=== PATIENT | male | born 1975 | race Caucasian/White ===

== ENCOUNTER 2022-02-26 08:04 | Outpatient (CLI) | payer OTHER, SELFPAY ==
[2022-02-26 13:44] LABS: Chloride* 106 mmol/L (96-114); Sodium* 140 mmol/L (135-149)
[2022-02-26 13:45] LABS: Potassium* 4.5 mmol/L (3.6-5.1)
[2022-02-26 13:47] LABS: Carbon Dioxide* 26 mmol/L (20-32); Cholesterol* 145 mg/dL (90-199); Creatinine* 0.9 mg/dL (0.5-1.5); Estimated Glomerular Filt Rate 108 ml/min
[2022-02-26 13:48] LABS: Blood Urea Nitrogen* 18 mg/dL (5-24); Calcium* 9.3 mg/dL (8.4-10.6); Glucose* 115 mg/dL (60-115); HDL Cholesterol* 61 mg/dL (>=40); LDL Cholesterol Calculated 75 mg/dL (<100); Triglycerides* 47 mg/dL (40-149)
[2022-02-27 18:10] LABS: Testosterone, Adult Male 390 ng/dL (300-890)
== END 2022-02-26 08:05 | disposition home or self-care (01) ==
LOC: LONREF 08:05
PROVIDERS: PCP Family Medicine; Visit Provider Family Medicine
DX: E29.1 Testicular hypofunction (principal); I10 Essential (primary) hypertension; E78.5 Hyperlipidemia, unspecified
CPT/HCPCS: 80048; 80061; 84403

== ENCOUNTER 2022-10-13 15:20 | Outpatient (CLI) | payer OTHER, SELFPAY ==
--- NOTE | 2022-10-13 15:30 | MR_ITS ---
[address] [address] Phone:?[phone] Fax:?[phone] Referring Physician Information: Melissa Villar [address] [facility] [address] Phone:?[phone] Fax:?[phone] Patient:Nico Hawkins D.O.B:?1975 Sex:?Male Phone:?[phone] [facility] MRN:?[id number] Exam Date:?10/13/2022 ? EXAM: MRI of the RIGHT SHOULDER, without contrast CLINICAL INFORMATION: Male, 47 years old, with right shoulder pain. INDICATION: Evaluate for rotator cuff tear. PRIOR SURGERY: None reported. PLAIN FILMS: Shoulder radiographs dated 09/30/2022. COMPARISONS: No prior MRIs available. TECHNICAL INFORMATION: Using a 1.5T MR scanner and a localizing surface coil: coronal obliques: PD, T2FS sagittal obliques: T2, PDFS axials: PD, PDFS SEDATION: None CONTRAST: None FINDINGS: Bones: Proximal humerus: No fracture or marrow edema/pathology. No humeral Hill-Sachs or reverse Hill-Sachs lesion/impaction or contusion. Glenoid: No fracture or marrow edema/pathology. No osseous Bankart lesion. Rotator cuff and muscles/tendons: Supraspinatus: Full width, full-thickness tear of supraspinatus, tendon retraction to the medial aspect of the humeral head and grade 2 muscle atrophy. Infraspinatus: Full thickness, nearly full-width tear of infraspinatus, with tendon retraction to the medial aspect of the humeral head. A few poor quality fibers may remain intact posteriorly. No muscle atrophy. Teres minor: No tendinopathy, tear or atrophy. Subscapularis: Mild tendinopathy of the superior distal subscapularis, without tendon tear or muscle atrophy. Deltoid: No strain or atrophy. Coracoacromial arch: Acromion morphology: The acromion has type II morphology. No discrete subacromial osseous spur or os acromiale. Acromiohumeral space: The acromiohumeral space measures 5.4 mm at its narrowest point (osseous distance). Coracohumeral space: The coracohumeral space is within normal limits. Acromioclavicular joint: Joint: Moderate AC joint arthropathy, with approximately 3 mm of inferior osteophytosis. Ligaments: Coracoclavicular ligaments are intact. Bursae: Subacromial-subdeltoid: Moderate subacromial-subdeltoid bursal fluid, which reflects accumulation from the full-thickness rotator cuff tear. Subcoracoid: No convincing subcoracoid bursal thickening/bursitis. Biceps tendon: The long head of the biceps tendon is present within the bicipital groove. The intra-articular and extra-articular segments are intact without tendinosis, tenosynovitis, or displacement. Glenohumeral joint: Effusion/cyst: Large glenohumeral joint effusion. Articular cartilage: Humeral head: Mild generalized thinning of the articular cartilage throughout the medial aspect of the humeral head with minimal inferomedial marginal osteophytosis. Glenoid: Mild generalized thinning of the glenoid articular cartilage, with mild marginal osteophytosis. Loose bodies: No discrete intra-articular body within the joint. Labrum:?Circumferential degeneration and poorly defined fraying/tearing of the labrum, which is of doubtful clinical significance. Inferior glenohumeral ligament/axillary pouch:?Intact. The axillary pouch is normal in thickness and signal. No evidence of adhesive capsulitis or capsular injury. IMPRESSION: 1. Full-width, full-thickness tear of supraspinatus, with tendon retraction to the medial aspect of the humeral head and grade 2 muscle atrophy. 2. Full-thickness, essentially full-width tear of infraspinatus, with tendon retraction to the medial aspect of the humeral head. A few, poor quality fibers may remain intact posteriorly. 3. Mild narrowing of the glenohumeral space with moderate subacromial-subdeltoid bursal fluid. Additionally, there is moderate AC joint arthropathy with 3 mm of inferior osteophytosis. 4. Mild osteoarthritis of the glenohumeral joint with a large joint effusion. 5. Circumferential degeneration and poorly defined fraying/tearing of the labrum, which is of doubtful clinical significance. 6. No tendinopathy, displacement, or tear of the biceps long head tendon. BC Electronically signed on 10/14/2022 7:35:00 AM by Milan Urias M.D.
== END 2022-10-13 15:21 | disposition home or self-care (01) ==
PROVIDERS: PCP Family Medicine; Visit Provider Physician Assistant Surgical
DX: M25.511 Pain in right shoulder (principal); M75.101 Unspecified rotator cuff tear or rupture of right shoulder, not specified as traumatic; M75.51 Bursitis of right shoulder; M25.411 Effusion, right shoulder; M25.311 Other instability, right shoulder
CPT/HCPCS: 73221

== ENCOUNTER 2022-11-12 16:30 | Outpatient (RCR) | payer OTHER, SELFPAY | END 2023-01-06 10:00 | disposition home or self-care (01) | PROVIDERS: PCP Family Medicine; Visit Provider Physician Assistant Surgical | DX: M25.511 Pain in right shoulder (principal); M25.311 Other instability, right shoulder; Z51.89 Encounter for other specified aftercare | CPT/HCPCS: 97110; 97112; 97140; 97161 ==

== ENCOUNTER 2022-12-03 15:41 | Outpatient (CLI) | payer OTHER, SELFPAY | END 2022-12-03 15:42 | disposition home or self-care (01) | LOC: LONREF 15:42 | PROVIDERS: PCP Family Medicine; Visit Provider Family Medicine | DX: I10 Essential (primary) hypertension (principal); E78.5 Hyperlipidemia, unspecified | CPT/HCPCS: 80048 ==

== ENCOUNTER 2022-12-10 07:25 | Day surgery (SDC) | payer OTHER, SELFPAY ==
[2022-12-10] VITALS (14 sets, daily range): BP systolic 127–151; BP diastolic 76–95; PULSE 60–77; RESP 12–22; TEMP 36.3–36.8; O2SAT 93–98; BMI 33.4
[2022-12-10] MEDS: SODIUM CHLORIDE 0.9 % (FLUSH) 10 ML SYRINGE IVF (08:00)
[2022-12-10] MEDS: LACTATED RINGERS 1000 ML 1,000 ML 100 ML IV ×2 (08:00→10:03)
--- NOTE | 2022-12-10 08:39 | SUR.PREOP ---
TIME?OUT:?0840 PT/RN/MDA?VERIFICATION?OF?SURGICAL?SITE,?PROCEDURE,?AND?CONSENT OBTAINED?PRIOR?TO?INVASIVE?PROCEDURE.
[2022-12-10] MEDS: MIDAZOLAM HCL 1 MG/ML inj IVP (08:40)
[2022-12-10] MEDS: fentaNYL 100 MCG/2 ML inj IVP (08:40)
--- NOTE | 2022-12-10 09:57 | P.NB_ITS ---
Nerve Block Nerve Block Time Seen by Provider: 08:43 Date Seen: 12/10/22 Type of block requested by surgeon for post-operative analgesia: supraclavicular Side: right Time out performed: Yes Verification of patient name: Yes Verification of date of : Yes Site marking: site marked Name of person performing procedure: Thierno Continuous monitoring Was continuous monitoring of O2 sat, B/P, diagnostic cardiac sonographer, recorded every 15 minutes?: Yes Procedure Checklist: sterile prep, needles and gloves Ultrasound guided. Images saved: Yes Medications given in 5ml increments after negative aspiration: Ropivicaine %: 0.5 mL: 20 Needle gauge: 22 Decadron (mg): 10 Precedex (mcg): 25 Patient tolerated procedure well: Yes Block Charges Block Charge (with Pro Fee): Brachial Plexus Use of Ultrasound Machine for Block: Yes- US Guidance/pain block
--- NOTE | 2022-12-10 09:58 | W.ANESCHARGE ---
Anesthesia Charges Start Date/Time Anesthesia Start Date: 12/10/22 Anesthesia Start Time: 09:38 Stop Date/Time Anesthesia Stop Date: 12/10/22 Anesthesia Stop Time: 12:38
[2022-12-10] MEDS: CEFAZOLIN 2 GM in 0.9 % SODIUM CHLORIDE Mini-bag 100 ML IVPB (10:01)
[2022-12-10] MEDS: EPINEPHrine 1 MG in SODIUM CHLORIDE IRRIG SOLUTION 3,000 ML 3001 MG IRRIGATION ×6 (10:30→11:38)
--- NOTE | 2022-12-10 12:00 | P.ORPRC_ITS ---
Procedure Note Date of procedure: 12/10/22 Procedure: PREOPERATIVE DIAGNOSES: 1. Right shoulder rotator cuff tear. 2. Right shoulder AC degenerative joint disease, primary, moderate-severe 3. Right shoulder subacromial impingement syndrome. POSTOPERATIVE DIAGNOSES: 1. Right shoulder rotator cuff tear-full thickness supraspinatus and infraspinatus with retraction to the glenoid. Also upper border subscapularis tearing 2. Right shoulder AC degenerative joint disease, primary, moderate-severe 3. Right shoulder subacromial impingement syndrome. NAME OF OPERATION: 1. Right shoulder arthroscopic rotator cuff repair - massive 3 tendon tear with retraction of the supraspinatus and infraspinatus to the glenoid with adhesions -of note, 33% added difficulty for this case which included 33% more time and need for tissue mobilization due to its retracted, adhesed state of the rotator cuff (supraspinatus and infraspinatus) tissue. 2. Right shoulder arthroscopic distal clavicle excision 3. Right shoulder arthroscopic bursectomy, subacromial decompression/partial acromioplasty. SURGEON: Paul Ritter MD CERTIFIED MEDICATION TECHNICIAN: Omayra Tubbs. Of note, a skilled preschool teacher's assistant was critical for this case to aide in patient positioning, suture manipulation, arm positioning, instrument positioning, and closure. ANESTHESIA: General plus preoperative supraclavicular block. EBL: 25 mL IMPLANTS: Arthrex 2.6 mm knotless FiberTak RC (x2); 4.75 mm BioComposite SwiveLock suture anchor (x1); 5.5 mm BioComposite SwiveLock suture anchor (x2) COMPLICATIONS: None evident INDICATIONS: The patient is a pleasant, 47-year-old male who has experienced right shoulder pain that has been increasing in recent time. Physical exam and imaging were consistent with a rotator cuff tear. Given their findings, as well as the weakness and pain, and inadequate response to nonoperative management, recommendation was made for surgery. FINDINGS: Exam under anesthesia revealed stable shoulder with excellent range of motion. The diagnostic arthroscopy revealed grade 2 chondromalacia humeral head. The Subscapularis tendon was torn from its upper border with mild retraction. The long head of the biceps tendon was intact. The superior rotator cuff tendon was found to be torn full-thickness throughout the entire breadth of the supraspinatus and a majority of the infraspinatus with retraction to the glenoid for both of these tissues. The labrum was relatively healthy circumferentially. No loose bodies were identified within the pouch or subscapularis recess. PROCEDURE: Following a thorough discussion of risks, benefits, and alternatives, consent was obtained and the right shoulder was marked. The patient was brought to the operating room and placed supine on the operating table. Induction of anesthesia was completed after preoperative supraclavicular block was administered in preop holding. Appropriate time out was performed identifying proper patient, site, and procedure. 2 g IV Ancef was administered within 1 hour of incision preoperatively. The right upper extremity was prepped and draped in the appropriate sterile fashion using ChloraPrep prep. This was after the patient was positioned in the beach chair with their head in neutral alignment and all bony prominences well padded. The shoulder was insufflated with 20mL of normal saline via an 18g spinal needle from a posterior approach. An 11 blade skin incision allowed a blunt trochar to be inserted and diagnostic arthroscopy to be performed with the findings as noted above. An anterior portal was established with an outside in technique. This allowed the probe to be inserted and confirm the diagnostic arthroscopic findings. The shaver was then inserted and allowed debridement of rotator interval to help better access the subscapularis. Following this, the upper border subscapularis was repaired after debriding the lesser tuberosity with the shaver and Letart cautery. Subscapularis was captured in horizontal mattress fashion with a fiber tape suture. The tails were brought to a single anchor in the lesser tuberosity with excellent reapproximation of the subscap tendon and good excursion/tension. Thereafter, the subacromial space was entered. Here, a complete bursectomy and partial acromioplasty/subacromial decompression was performed with a combination of radiofrequency ablator, the shaver, and a 5.5 mm bur. Additionally, distal clavicle excision was performed with the bur. 8 mm of distal clavicle was resected based on the with of our bur. Further inspection of the supraspinatus and infraspinatus rotator cuff was performed. This identified the tear as noted above. The margins of the tear were debrided, and the greater tuberosity was debrided with a combination of the apollo cautery, shaver, and bur on reverse setting. Of note, did require substantial increased tissue mobilization/lysis of adhesions to provide the rotator cuff tissue excursion that was needed to reapproximate the tissue to the greater tuberosity. In fact, approximately 45-50 minutes was spent in releasing of adhesions and improving tissue excursion for eventual repair. This indeed was 33% longer than is typical for rotator cuff repairs in my hands. [After gentle decortication, a speed bridge configuration with knotless 2.6 mm FiberTak RC anchors. The medial anchors were placed, sutures passed through the cuff tissue with a FiberLink, and the knotless mechanism swapped and passed and tightened nearly all the way but final tensioning was reserved for the very end. The tissue was held laterally during tightening of these medial roxanna sutures. We then cross the fiber tapes and placed him into a lateral anchor with excellent footprint compression. After securing these lateral anchors, the medial roxanna sutures were tensioned to their final state with excellent security to the anchors and rotator cuff reapproximation to the greater tuberosity. Prior to anchor local company hazmat driver removal, the eyelet sutures were tugged on for each anchor and found that the anchor had excellent stability within the bone. The shoulder was placed through range of motion and found to be stable. The rotator cuff was re-probed and found to be stable. Instruments were removed. Excess fluid was drained, closure performed with 4-0 Monocryl and Steri-Strips. Dressings were applied. Sling was applied. The patient was awoken from anesthesia and transferred to the PACU in stable condition. A skilled preschool teacher's assistant was critical for this case to aid in patient positioning, limb positioning, skill to manipulate arthroscopic instruments and camera, suture management, patient safety, and closure. PLAN: 1. Elbow, forearm, wrist and digit range of motion as tolerated. 2. Encouraged ice. 3. Percocet for pain as needed. 4. Sling at all times except for ROM and showering. 5. Follow up with PA visit in 1-2 weeks for wound check. Initiate physical therapy following that visit for passive range of motion. Initiate active assisted range of motion at 3 weeks. May do pendulums now.
--- NOTE | 2022-12-10 12:34 | W.ANESCHARGE ---
Anesthesia Charges Start Date/Time Anesthesia Start Date: 12/10/22 Anesthesia Start Time: 09:38 Stop Date/Time Anesthesia Stop Date: 12/10/22 Anesthesia Stop Time: 12:38
[2022-12-10] MEDS: fentaNYL 100 MCG/2 ML inj 50 MCG IVP (12:43)
[2022-12-10] MEDS: OxyCODONE/APAP 5-325 TABLET PO (13:20)
== END 2022-12-10 14:32 | disposition home or self-care (01) ==
PROVIDERS: PCP Family Medicine; Visit Provider Orthopaedic Surgery Sports Medicine
PROC: (CPT 29805; principal; 2022-12-10 09:15)
DX: M75.101 Unspecified rotator cuff tear or rupture of right shoulder, not specified as traumatic (principal); M19.011 Primary osteoarthritis, right shoulder; M75.41 Impingement syndrome of right shoulder; G89.18 Other acute postprocedural pain
CPT/HCPCS: 29827; 29826; 29824; 01630; 64415; 76942; A9270; C1713; J0171; J0330; J0690; J1100; J1170; J2250; J2405; J2704; J2795; J3010; J7120

== ENCOUNTER 2023-03-02 14:45 | Outpatient (RCR) | payer OTHER, SELFPAY | END 2023-05-20 14:44 | disposition home or self-care (01) | PROVIDERS: PCP Family Medicine; Visit Provider Physician Assistant Surgical | DX: Z51.89 Encounter for other specified aftercare (principal); Z98.890 Other specified postprocedural states; M25.511 Pain in right shoulder; Z74.09 Other reduced mobility; R53.1 Weakness | CPT/HCPCS: 97110; 97112; 97140; 97162 ==

== ENCOUNTER 2023-06-24 08:35 | Outpatient (CLI) | payer OTHER, SELFPAY | END 2023-06-24 08:36 | disposition home or self-care (01) | LOC: NFLDREF 06-26 08:03 | PROVIDERS: PCP Family Medicine; Referring Provider Family Medicine; Visit Provider Family Medicine | DX: E78.5 Hyperlipidemia, unspecified (principal) | CPT/HCPCS: 80061 ==

== ENCOUNTER 2023-09-22 16:09 | Outpatient (CLI) | payer OTHER, SELFPAY ==
--- NOTE | 2023-09-22 16:00 | US_ITS ---
Patient: CHRIS CHOI Facility:?[facility] Patient ID:?[id number] Site Patient ID:?[id number]. Site :?1975 Study:?US-Testicle SCROTUM-09/22/2023 4:57:23 PM Ordering Physician:?LILIA PAINTER CNP Final Report: Indication: Right testicular pain. Technique: Ultrasound of the scrotum and contents. Sonographic robert-scale images were obtained with spectral and color Doppler waveform and spectral waveform analysis of the testicles. Comparison: None. Findings: Bother testicles are normal in size and echotexture. No masses. Punctate calcifications present in the right testicle. Arterial and venous color Doppler blood flow and spectral waveforms are present in both testicles. Epididymis: Right epididymis is hyperemic relative to the left. Other: No significant hydrocele. No sign of varicocele. Scrotal wall appears thickened. Impression: Probable right side epididymitis. Suspected scrotal wall thickening suggesting inflammation. No sign of torsion. No other significant abnormality. Dictated by Audie Cagle MD @ 09/22/2023 5:24:11 PM Signed by:?Audie Cagle MD @09/22/2023 5:24:11 PM (Electronic Signature)
== END 2023-09-22 16:10 | disposition home or self-care (01) ==
LOC: US 16:09
PROVIDERS: PCP Family Medicine; Visit Provider Nurse Practitioner Family
DX: N50.811 Right testicular pain (principal)
CPT/HCPCS: 76870; 93976

== ENCOUNTER 2024-02-24 07:37 | Emergency (ER) | payer OTHER, SELFPAY ==
[2024-02-24 07:42] VITALS: BP 139/93; PULSE 65; RESP 16; TEMP 36.3; O2SAT 97; BMI 32.0
--- NOTE | 2024-02-24 08:04 | ED_ITS ---
HPI - General Adult General Chief complaint: Back Injury/Pain Stated complaint: lower back pain Time Seen by Provider: 02/24/24 07:44 History of Present Illness HPI narrative: 48 year white male with a know history of low back pain presents with right- sided low back pain radiates down his right leg. He has no bowel or bladder symptoms, loss of control of bowel or bladder. No perineal numbness. He has had no real history of back pain before, does not recall trauma or injury. 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 He has had no fever, chills, weight loss. Patient has struggled with some left shoulder pain and was pending an MRI for shoulder discomfort. Patient reports no loss of control of his right leg or weakness. He did some stretching at home and some icing and it seemed worse today. Related Data Home Medications ?Medication ?Instructions ?Recorded ?Confirmed Testosterone Cypionate Inj. 350 mg IM Q2W 01/31/22 02/09/24 Previous Rx's ?Medication ?Instructions ?Recorded atorvastatin 20 mg tablet 20 mg PO QDAY #90 tabs 10/20/23 citalopram 40 mg tablet 40 mg PO QDAY #30 tabs 01/19/24 lisinopril 40 mg tablet 40 mg PO QDAY #30 tabs 01/19/24 oxycodone 5 mg tablet 5 mg PO QHS PRN pain #30 tabs 02/09/24 celecoxib 200 mg capsule (Celebrex) 200 mg PO DAILY #14 caps 02/24/24 hydrocodone 7.5 mg-acetaminophen 1 tab PO Q8H PRN pain #14 tabs 02/24/24 325 mg tablet prednisone 20 mg tablet 20 mg PO BID #10 tabs 02/24/24 Allergies Allergy/AdvReac Type Severity Reaction Status Date / Time No Known Drug Allergies Allergy Verified 02/24/24 07:48 Review of Systems Status of ROS: Reports: 6 or more systems reviewed and unremarkable except as noted in History and below [facility] Medical History Mixed hyperlipidemia ?E78.2 - Mixed hyperlipidemia (ICD-10) Primary hypertension ?I10 - Essential (primary) hypertension (ICD-10) Epididymitis ?N45.1 - Epididymitis (ICD-10) Sleep apnea ?G47.30 - Sleep apnea, unspecified (ICD-10) Insomnia (02/01/13) ?G47.00 - Insomnia, unspecified (ICD-10) Heart murmur ?R01.1 - Cardiac murmur, unspecified (ICD-10) Anxiety (12/25/08) ?F41.9 - Anxiety disorder, unspecified (ICD-10) Tobacco use disorder (12/25/08) ?F17.200 - Nicotine dependence, unspecified, uncomplicated (ICD-10) Surgical History History of arthroscopy of right shoulder (12/10/22) ?Z98.890 - Other specified postprocedural states (ICD-10) Status post tendon repair ?Z98.890 - Other specified postprocedural states (ICD-10) Status post surgical manipulation of ankle joint ?Z98.890 - Other specified postprocedural states (ICD-10) Status post vasectomy ?Z98.52 - Vasectomy status (ICD-10) Family History Other Diabetes Social History What is your current living situation?: I presently have a place to live Problems where you live: no known problems In the past 12 months, utilities in danger of being shut off: no In past 12 months, lack of transportation kept you from medical appts, meetings, work, or getting things needed for daily living: no In the past 12 mos, have been you worried that your food would run out before you had money to buy more?: never true In the past 12 mos, the food you bought just didn't last and you didn't have money to buy more?: never true Smoking Status: Former smoker What tobacco products do you use: cigarettes Smoking quit date/years: <= 15 years ago Do you use any of these nicotine containing products: None How often do you have a drink containing alcohol: 2-3 times a week Alcohol type: hard liquor How many standard drinks containing alcohol do you have on a typical day: 5 or 6 How often do you have six or more drinks on one occasion: Never AUDIT-C Alcohol total score: 5 Non-prescribed substance use: denies use Caffeine: Yes (4 monsters/day) How often does anyone, including family, friends and others, physically hurt you : never How often does anyone, including family, friends and others, insult or talk down to you: never How often does anyone, including family, friends and others, threaten you with harm: never How often does anyone, including family, friends and others, scream or curse at you: never Little interest or pleasure in doing things: more than half the days Feeling down, depressed, or hopeless: more than half the days Exam Narrative: Exam Narrative: Objective: Patient is afebrile He is in mild distress to moderate distress and discomfort, he is cooperative alert He walks with a very straight back and has difficulty flexing his back. Ports pain in his right posterior superior iliac spine area that radiates through his buttock and down to his lateral leg on the right. He has normal sensation and strength in lower extremities bilaterally, he has a positive straight leg raise on the right at about 50? Normal sensation peripherally Const: Vital Signs, click to edit/add: Vital Signs - 24 hr 02/24/24 07:42 Temperature 97.3 F L Pulse Rate [Right Pulse Oximeter] 65 Respiratory Rate 16 Blood Pressure [Ri ght Upper Arm] 139/93 H Pulse Oximetry 97 Oxygen Delivery Me thod Room Air Course Vital Signs Vital signs: Initial Vital Signs Temperature 97.3 F L 02/24/24 07:42 Temperature Source Temporal Artery Scan 02/24/24 07:42 Pulse Rate 65 02/24/24 07:42 Pulse Rhythm Regular 02/24/24 07:42 Respiratory Rate 16 02/24/24 07:42 Blood Pressure 139/93 H 02/24/24 07:42 Blood Pressure Mean 108 H 02/24/24 07:42 Blood Pressure Position Sitting 02/24/24 07:42 Pulse Oximetry 97 02/24/24 07:42 Oxygen Delivery Method Room Air 02/24/24 07:42 Vital Signs Temperature 97.3 F L 02/24/24 07:42 Pulse Rate 65 02/24/24 07:42 Respiratory Rate 16 02/24/24 07:42 Blood Pressure 139/93 H 02/24/24 07:42 Pulse Oximetry 97 02/24/24 07:42 Oxygen Delivery Method Room Air 02/24/24 07:42 Temperature 97.3 F L 02/24/24 07:42 Pulse Rate 65 02/24/24 07:42 Respiratory Rate 16 02/24/24 07:42 Blood Pressure 139/93 H 02/24/24 07:42 Pulse Oximetry 97 02/24/24 07:42 Oxygen Delivery Method Room Air 02/24/24 07:42 Medications Administered Medications: Discontinued Medications Generic Name Dose Route Start Last Admin Trade Name Savannah PRN Reason Stop Dose Admin Morphine Sulfate 10 mg 02/24/24 08:03 02/24/24 08:23 Morphine 10 Mg/Ml Inj IM 02/24/24 08:04 10 mg ONCE ONE Administration Prednisone 50 mg 02/24/24 08:03 02/24/24 08:23 Prednisone 10 Mg Tablet PO 02/24/24 08:04 50 mg ONCE ONE Administration Medical Decision Making MDM Narrative Medical decision making narrative: 48-year-old male with right low back pain and evidence of radiculitis in the right lower extremity. Positive straight leg raise. Possible nerve impingement versus nerve inflammation. At this point given he has absence of bowel or bladder problems, no cauda equinus and symptoms. I think we can keep this fairly straightforward will give him morphine IM 10 mg, will given prednisone 50 mg orally now, and will as call in additional prednisone for 5 days and some Roach and Celebrex. Patient should follow-up with Dr. Reilly in the next 3-4 days, will write him off work for a week. Return if problems or concerns, recommend light activity and icing on the back on a regular basis. Return to ED as needed. Discharge Plan Discharge Clinical Impression: Lumbar radiculopathy Patient Disposition: Home w/ Parent or Adult Condition: Stable Additional Instructions: Off work x1 week, note will be given to you, prednisone and pain medicine as prescribed. Recommend you see Dr. Reilly in the next few days to discuss ongoing management. If you worsen or change return to the ED. recommend ice for 5-10 minutes 5 times a day for the next few days. Position of comfort in gentle range of motion of your back. Do not remain lying in bed too long if possible. Activity Level: Light activity Discharge Diet: Regular Prescriptions: New prednisone 20 mg tablet 20 mg PO BID Qty: 10 0RF celecoxib [Celebrex] 200 mg capsule 200 mg PO DAILY Qty: 14 3RF hydrocodone-acetaminophen 7.5-325 mg tablet 1 tab PO Q8H PRN (Reason: pain) Qty: 14 0RF No Action Testosterone Cypionate Inj. 350 mg IM Q2W testosterone cypionate [Depo-Testosterone] 200 mg/mL oil 350 mg IM ONCE Qty: 1.75 0RF testosterone cypionate [Depo-Testosterone] 200 mg/mL oil 200 mg IM ONCE Qty: 1 0RF Hold Instructions: not taken oxycodone 5 mg tablet 5 mg PO QHS PRN (Reason: pain) Qty: 30 0RF Rx Instructions: Chronic pain atorvastatin 20 mg tablet 20 mg PO QDAY Qty: 90 2RF citalopram 40 mg tablet 40 mg PO QDAY Qty: 30 0RF lisinopril 40 mg tablet 40 mg PO QDAY Qty: 30 0RF Follow Up/Referrals: Edi Reilly MD [Primary Care Provider] - Stand Alone Forms: MyHealth Info Instructions
--- OUTSIDE RECORDS SUMMARY | 2024-02-24 08:20 | XMS_ITS | Encounter Summary ---
Author Organization [facility] Address [address] [place] [address] Care Team Providers Care Window Glazier Name Role Phone Bhavin Betancourt Primary Care Provider [phone] Encounter Details Date Type Department Care Team (Late st Contact Info) Description 12/30/2023 E-Visit [address] [address] [place], [place] [address] Social History Tobacco Use Types Packs/Day Years Used Date Smoking Tobacco: Former Cigarettes Alcohol Use Standard Drinks/Week Comments Yes 0 (1 standard drink = 0.6 oz pur e alcohol) 20 per wk Mix drinks Sex and Gender Information Value Date Recorded Sex Assigned at Not on file Gender Identity Not on file Sexual Orientation Not on file documented as of this encounter Plan of Treatment Upcoming Encounters Date Type Department Care Team (Late st Contact Info) Description 11/16/2024 3:40 PM CDT Appointment TMD at [facility] [address] [place] [address] Christal Silverman, DDS, [place] [address] [place] [address] documented as of this encounter Visit Diagnoses Not on filedocumented in this encounter Care Teams Window Glazier Relationship Specialty Start Date End Date Bhavin Betancourt [address] [address] PCP - General 08/07/1998 documented as of this encounter
--- OUTSIDE RECORDS SUMMARY | 2024-02-24 08:20 | XMS_ITS | Clinical Summary ---
[facility] Organization [facility] Address [address] [place] [address] Care Team Providers Care Priming Mixture Carrier Name Role Phone Bhavin Betancourt Primary Care Provider [phone] Source Comments You are receiving this document as you are listed as the primary care provider,follow-up provider, or the patient has been referred to you for consultation.This is in compliance with the Medicare and[facility] E[facility] Incentive [facility],which states Providers who transition their patient to another setting of careor provider of care or refers their patient to another provider of care shouldprovide summary care record for each transition of care or referral. Interwise Allergies No known active allergies Medications Medication Sig Dispensed Refills Start Date End Date Status LISINOPRIL-HYDROCHLORO THIAZIDE OR Active citalopram (CELEXA) 40 MG tablet Active atorvastatin (LIPITOR) 20 MG tablet Take 1 Tablet (20 mg) by mouth daily. 04/07/2023 Active lisinopril (ZESTRIL) 40 MG tablet Active Active Problems Problem Noted Date Diagnosed Date DEX (obstructive sleep apnea) 06/04/2023 Encounters Date Type Department Care Team Description 12/30/2023 E-Visit [facility] [address] [address] Mychart, Generic Provider 12/23/2023 E-Visit [facility] [address] [address] Mychart, Generic Provider 12/22/2023 12:00 PM CDT Sleep Procedure [facility] [address] [address] DEX (obstructive sleep apnea) (Primary Dx) from Last 3 Months Social History Tobacco Use Types Packs/Day Years Used Date Smoking Tobacco: Former Cigarettes Tobacco Cessation:Counseling Given: Not Answered Alcohol Use Standard Drinks/Week Comments Yes 0 (1 standard drink = 0.6 oz pur e alcohol) 20 per wk Mix drinks Sex and Gender Information Value Date Recorded Sex Assigned at Not on file Gender Identity Not on file Sexual Orientation Not on file Last Filed Vital Signs Vital Sign Reading Time Taken Comments Blood Pressure 138/85 06/04/2023 4:01 PM RESIDENTIAL CARPET INSTALLER Pulse 102 06/04/2023 4:01 PM RESIDENTIAL CARPET INSTALLER Temperature 36.2 ??C (97.2 ??F) 06/04/2023 4:01 PM CS T Respiratory Rate 16 06/04/2023 4:01 PM RESIDENTIAL CARPET INSTALLER Oxygen Saturation 96% 06/04/2023 4:01 PM RESIDENTIAL CARPET INSTALLER Inhaled Oxygen Concentration - - Weight 122.5 kg (270 lb) 12/21/2023 11:49 AM CDT Height 198.1 cm (6' 6) 12/21/2023 11:49 AM CDT Body Mass Index 31.2 12/21/2023 11:49 AM CDT Plan of Treatment Upcoming Encounters Date Type Department Care Team (Late st Contact Info) Description 11/16/2024 3:40 PM CDT Appointment [facility] at [facility] [address] [place] [place], [place] [id number] Christal Silverman, DDS, MS [address] [place] [address] Health Maintenance Due Date Last Done Comments Colon Cancer Screening Plan Due 1977 Diabetes Screening- (based o n age and BMI) 1977 Hep C Screening (Preventive Services) 1977 HIV Screening (Preventive Services) 1993 Adult Preventive Visit 1995 DTaP/Tdap/Td (1 - Tdap) 1996 HepB (1) 1996 Cholesterol 2012 COVID-19 Vaccine ( - 2022-2 4 season) 2024 Influenza (#1) 2024 Zoster/Shingles (1 of 2) 2027 HepA Aged Out No longer eligi ble based on patient's age to complete this topic Hib Aged Out No longer eligi ble based on patient's age to complete this topic IPV (Polio) Aged Out No longer eligi ble based on patient's age to complete this topic MCV4 Aged Out No longer eligi ble based on patient's age to complete this topic Pneumococcal Aged Out No longer eligi ble based on patient's age to complete this topic Care Teams Priming Mixture Carrier Relationship Specialty Start Date End Date Bhavin Betancourt [place] [id number] [address] [address] PCP - General 08/07/1998
--- OUTSIDE RECORDS SUMMARY | 2024-02-24 08:20 | XMS_ITS | Encounter Summary ---
Author Organization [facility] Address [address] [place] [address] Care Team Providers Care Parcel Post Delivery Name Role Phone SerafinBhavin Rajinder Primary Care Provider [phone] Reason for Referral * Consult/Transfer Care (Routine) - New Request Specialty Diagnoses / Procedures Referred By Contac t Referred To Contact Diagnoses DEX (obstructive sleep apnea) Nani Christina MD [address] [place] [address] Referral ID Status Reason Start Date Expiration Date V isits Requested Visits Authorized [id number] New Request 01/16/2024 04/16/2025 1 1 Scheduling Instructions Your clinician has recommended an appointment with [facility]. You may call [phone] to schedule your appointment. We suggest you call your health insurance company about your coverage and benefits for this appointment. Question Answer Appointment Urgency? Non-Urgent When: Other - 2 weeks Provider: Referring - Located Within [facility] Location: Pulmonary - [place] Reason for visit? oral appliance advancement * Procedure/Equipment (Routine) - New Request Specialty Diagnoses / Procedures Referred By Contac t Referred To Contact Diagnoses DEX (obstructive sleep apnea) Procedures Positive Airway Pressure - Nani Montero MD [address] [place] [id number] Referral ID Status Reason Start Date Expiration Date V isits Requested Visits Authorized [id number] New Request 12/23/2023 03/23/2025 1 1 Reason for Visit * Procedure/Equipment (Routine) - Closed Specialty Diagnoses / Procedures Referred By Kendell eisenberg Referred To Contact Diagnoses DEX (obstructive sleep apnea) Christal Silverman DDS, MS [address] [place] [address] Referral ID Status Reason Start Date Expiration Date Visits Re quested Visits Authorized [id number] Closed 11/17/2023 02/15/2025 1 1 Encounter Details Date Type Department Care Team (Latest Contact Info) Description 12/22/2023 12:00 PM CDT Sleep Procedure [address] [address] DEX (obstructive sleep apnea) (Primary Dx) Social History Tobacco Use Types Packs/Day Years Used Date Smoking Tobacco: Former Cigarettes Alcohol Use Standard Drinks/Week Comments Yes 0 (1 standard drink = 0.6 oz pur e alcohol) 20 per wk Mix drinks Sex and Gender Information Value Date Recorded Sex Assigned at Not on file Gender Identity Not on file Sexual Orientation Not on file documented as of this encounter Last Filed Vital Signs Vital Sign Reading Time Taken Comments Blood Pressure - - Pulse - - Temperature - - Respiratory Rate - - Oxygen Saturation - - Inhaled Oxygen Concentration - - Weight 122.5 kg (270 lb) 12/21/2023 11:49 AM CDT Height 198.1 cm (6' 6) 12/21/2023 11:49 AM CDT Body Mass Index 31.2 12/21/2023 11:49 AM CDT documented in this encounter Progress Notes * Jenni Hart - 12/22/2023 12:00 PM CDT [id number]-[id number] demonstration or video instructions of the recorder's application and use were provided to the patient. A 24-hour support line was available to the patient during testing. * Nani Christina MD - 12/22/2023 12:00 PM CDT Home Sleep Test (HST) Interpretation Date of Interpretation: 01/16/2024 BMI: Estimated body mass index is 31.2 kg/m?? as calculated from the following: Height as of this encounter: 6' 6 (1.981 m). Weight as of this encounter: 270 lb (122.5 kg). [place]iers Bottom Score: 3 Neck Circumference: Device Name/Type: Carefusion NOX-T3 (Type III) Hypopnea Definition: AASM Rule: 1A Technical Quality: 99 % This home sleep test was performed as a/an Diagnostic with OA study (unknown) a sleep partner in bed. The total recording time was 398.7 minutes. Snoring was reported as soft, intermittent Respiratory Events: Obstructive Apneas: 1 Central Apneas: 0 Mixed Apneas: 0 Hypopneas: 77 Overall RDI: 11.7 Non-Supine RDI: 11.1 Supine RDI: 33.5 Oxygen Desaturations: Lowest O2 saturation was 79 % Total Sleep Time SpO2 was </= 88% was 2.6 minutes. Positional Data: % Time Supine: 2.7 % % Time Non-Supine: 97.3 % EKG: No significant cardiac arrhythmias were noted Impression: This study indicates at least mild obstructive sleep apnea, supine predominant. Recommendation: Order placed to follow-up with [facility] for further adjustment of oral appliance if able Continue with non-supine sleep. If not able to further adjust OA, recommend trial of auto-titrating CPAP with close clinical follow-up for resolution of symptoms. Would suggest optimizing sleep hygiene measures, especially avoiding alcohol and sedatives. Avoiding sleep deprivation would also be beneficial. The patient should avoid dangers of driving while excessively drowsy. Weight management assistance. I attest that I have conducted an epoch by epoch review of all of the raw data for this sleep study. Nani Christina MD, MPH documented in this encounter Plan of Treatment Upcoming Encounters Date Type Department Care Team (Late st Contact Info) Description 11/16/2024 3:40 PM CDT Appointment TMD at [facility] [place] [address] [place] [address] Christal Silverman DDS, MS [address] [place] [address] Scheduled Referrals Name Type Priority Associated Diagnoses Orde r Schedule SLEEP STUDY RESULTS (TMD) Referral Routine DEX (obstructive sleep apnea) Ordered: 01/16/2024 documented as of this encounter Visit Diagnoses Diagnosis DEX (obstructive sleep apnea)- Primary Obstructive sleep apnea (adult) (pediatric) documented in this encounter Care Teams Parcel Post Delivery Relationship Specialty Start Date End Date Bhavin Betancourt [address] [address] PCP - General 08/07/1998 documented as of this encounter
--- OUTSIDE RECORDS SUMMARY | 2024-02-24 08:20 | XMS_ITS | Encounter Summary ---
Author Organization [facility] Address [address] [place] [address] Care Team Providers Care Control Clerk Auditing Name Role Phone Bhavin Betancourt Primary Care Provider [phone] Encounter Details Date Type Department Care Team (Late st Contact Info) Description 12/23/2023 E-Visit [address] [address] [place], [place] [address] Social History Tobacco Use Types Packs/Day Years [...] 11/16/2024 3:40 PM CDT Appointment TMD at [facility] [place] [address] [place] [address] Christal Silverman, DDS, MS [address] [place] [address] documented as of this encounter Visit Diagnoses Not on filedocumented in this encounter Care Teams Control Clerk Auditing Relationship Specialty Start Date End Date Bhavin Betancourt [address] [address] PCP - General 08/07/1998 documented as of this encounter
--- OUTSIDE RECORDS SUMMARY | 2024-02-24 08:21 | XMS_ITS | Encounter Summary ---
Author Organization [facility] Address [address] [place] [address] Care Team Providers Care Observatory Director Name Role Phone Bhavin Betancourt Primary Care Provider [phone] Reason for Referral * Consult/Transfer Care (Routine) - Closed Specialty Diagnoses / Procedures Referred By Kendell eisenberg Referred To Contact Diagnoses Obstructive sleep apnea Christal Silverman DDS, MS [address] [place] [address] Referral ID Status Reason Start Date Expiration Date Visits Re quested Visits Authorized [id number] Closed 11/17/2023 02/15/2025 1 1 Scheduling Instructions Your clinician has recommended an appointment with [facility]. Within this referral they may select to recommend you for: A. Consultation/Office Visit with a Sleep Medicine Specialist B. Consultation/Office Visit with an Insomnia Specialist C. Sleep Testing -In-Center Overnight Sleep Study D. Portable/Home Sleep test (Not all individuals will qualify for this type of study) Please Note: If sleep testing is recommended, it is not an automatic sleep study order and must first be reviewed by a sleep specialist to determine the next steps. The review process looks at multiple factors including your insurance requirements, personal health history, and [place] [employer] guidelines. This sleep services referral will be reviewed within two (2) business days and sent to the appropriate department for scheduling of the recommended appointment. If you do not hear from us within the next two (2) weeks, please contact us to help with triaging of your order: [facility]- [phone] Question Answer Appointment Urgency Non-Urgent Sleep Service Requested Sleep Test Other Pertinent History None Previously Diagnosed DEX Yes Reason for visit HST with oral appliance to assess management of DEX Comments Comments: Age/Sex: 48 y.o. / male Height: 06/04/23 : 6' 6 (1.981 m) Weight: 06/04/23 : 270 lb (122.5 kg) BMI: Estimated body mass index is 31.2 kg/m?? as calculated from the following: Height as of 06/04/23: 6' 6 (1.981 m). Weight as of 06/04/23: 270 lb (122.5 kg). Encounter Details Date Type Department Care Team (Latest Contact Info) Description 11/17/2023 3:40 PM CDT Office Visit TMD at [facility] [address] [place] [address] Christal Silverman DDS, MS [address] [place], [place] [id number] Obstructive sleep apnea (Primary Dx) Social History Tobacco Use Types [...] on file documented as of this encounter Progress Notes * Christal Silverman DDS, MS - 11/17/2023 3:40 PM CDT S: CC: Sleep apnea HPI: Patient presents for follow up with regards his apnea and mandibular advancement device. Type of oral appliance: Somnomed [place] Appliance insert date: 08/25/23 Frequency of oral appliance use: Nightly Adjustments made to oral appliance/ jaw advancement: Currently using strap 7, Strap 6 was working great. Are elastics being used? Yes Sleep quality: much improved. He is back sleeping in his bed. He has noticed he has been dreaming. He feels better. Complications from oral appliance use: neg ROS: Jaw pain: neg Jaw clicking: neg Changes to dentition since last visit: neg Dental pain: neg Bite/Occlusal changes: neg Is patient using morning director of philanthropy? Sometimes, does feel that need to use it. Weight changes: neg PFSH: Stressful job. O: Extraoral exam: no swelling, mass, or lymphadenopathy. Jaw range of motion: unrestricted, no TMJ noise, no pain. Points tender to palpation: No tenderness to palpation on the masticatory muscles, SCM muscles or TMJs. Intraoral exam: Soft tissue exam: WNL Dental exam: WNL Occlusion: Intercuspal dental contacts: solid contacts on all teeth Oral appliance fit: Somnomed [place] with strap #7, good fit, lower incisors significantly ahead of upper incisors. A: Diagnosis: Obstructive sleep apnea Diagnostic sleep study: In lab PSG in [place] AHI was 80+. HST with previous oral appliance (somnomed flex without elastics) completed through [facility] 02/10/2017 - AHI was 4.5; Supine AHI 6.9 Referring provider: Bebe Muir Progress: improved sleep, no complications from OA use. P: Recommended to continue to use device during sleep. Adjustment of oral appliance today: none. Pt will decide if he stays on strap #7 or deals it back to #6. Recommended to continue to watch for occlusal changes and to do jaw exercises upon awakening to reset his jaw. Discussed and agreed to proceed with HST with oral appliance to assess management of DEX with appliance. Order entered. Recommended follow up with us in 1 year or sooner as needed. Luan Fernandez DDS, MS documented in this encounter Plan of Treatment Upcoming Encounters Date Type Department Care Team (Late st Contact Info) Description 11/16/2024 3:40 PM CDT Appointment TMD at [facility] [address] [place], [place] [id number] Christal Silverman DDS, MS [address] [place], [place] [id number] Scheduled Referrals Name Type Priority Associated Diagnoses Orde r Schedule Sleep Services Referral Routine Obstructive sleep apnea Ordered: 11/17/2023 documented as of this encounter Visit Diagnoses Diagnosis Obstructive sleep apnea- Primary Obstructive sleep apnea (adult) (pediatric) documented in this encounter Care Teams Observatory Director Relationship Specialty Start Date End Date Bhavin Betancourt [address] [address] PCP - General 08/07/1998 documented as of this encounter
--- OUTSIDE RECORDS SUMMARY | 2024-02-24 08:21 | XMS_ITS | Encounter Summary ---
Author Organization [facility] Address [address] [place] [address] Care Team Providers Care Casino Enforcement Agent Name Role Phone Bhavin Betancourt Primary Care Provider [phone] Reason for Referral * Procedure/Equipment (Routine) - Closed Specialty Diagnoses / Procedures Referred By Contac t Referred To Contact Diagnoses DEX (obstructive sleep apnea) Christal Silverman DDS, MS [address] [place] [address] Referral ID Status Reason Start Date Expiration Date Visits Re quested Visits Authorized [id number] Closed 11/17/2023 02/15/2025 1 1 Scheduling Instructions Your clinician has placed an order for you to have a home sleep test. You will be contacted within the next 7-10 business days to discuss scheduling your set-up appointment for this device. There may be a delay in the set-up of your home sleep test due to insurance coverage verification and prior authorization requirements. The location and contact information for the site where you will orange picker machine operator your device is as follows: [facility] [address] [phone] (option 2) [email or web address] 1. You will be scheduled for a visit to the sleep center to orange picker machine operator via a curbside process. Please allow up to 15 minutes for the pick-up appointment. You will be expected to return the device to a drop box outside the clinic the following morning (before 9am). 2. Please notify us immediately at (option 2) if you are unable to keep your appointment. Failure to cancel or re -schedule your appointment may result in a cancellation fee. 3. Based upon the results of your home sleep test one of the following may occur. a. You may be referred back to your ordering provider for a result s visit to discuss the next steps. b. You may be referred for an in-center sleep study for a more thorough diagnostic test. c. You may be referred for an in-center sleep study to titrate Positive Airway Pressure (PAP) for treatment of obstructive sleep apnea (DEX). Return for F/U after sleep testing Patient will have the option to receive their results via MyChart or phone. Preliminary results will be provided within 3 business days. Final interpretation will be completed by a sleep specialist and can be discussed at your follow up visit. Depending on results, you may be contacted by Home Medical for positive airway pressure treatment. If you have additional questions, please visit our website at [email or web address] and review the information there. Question Answer Appointment Urgency? Non-Urgent Type of Study? Oral Appliance Study Is this a repeat home study? No Reason for visit? HST with oral appliance to assess management of DEX Comments SLEEP SERVICES REFERRAL --> HST (sent for cosign) HST with oral appliance to assess management of DEX Estimated body mass index is 31.2 kg/m?? as calculated from the following: Height as of 06/04/23: 6' 6 (1.981 m). Weight as of 06/04/23: 270 lb (122.5 kg). . Encounter Details Date Type Department Care Team (Late st Contact Info) Description 11/17/2023 Notes/Orders TMD at [facility] [address] [place], [place] [id number] Christal Silverman DDS, MS [address] [place] [id number] DEX (obstructive sleep apnea) (Primary Dx) Social [...] 11/16/2024 3:40 PM CDT Appointment TMD at [facility] [address] [place] [address] Christal Silverman, [place], [place] [address] [place] [address] Scheduled Referrals Name Type Priority Associated Diagnoses Orde r Schedule Sleep Study (Home)-Portable Setup Referral Routine DEX (obstructive sleep apnea) Ordered: 11/17/2023 documented as of this encounter Visit Diagnoses Diagnosis DEX (obstructive sleep apnea)- Primary Obstructive sleep apnea (adult) (pediatric) documented in this encounter Care Teams Casino Enforcement Agent Relationship Specialty Start Date End Date Bhavin Betancourt [address] [address] PCP - General 08/07/1998 documented as of this encounter
[2024-02-24] MEDS: predniSONE 10 MG TABLET 50 MG PO (08:23)
[2024-02-24] MEDS: MORPHINE 10 MG/ML inj IM (08:23)
== END 2024-02-24 08:40 | disposition home or self-care (01) ==
LOC: ED 08:18
PROVIDERS: Emergency Provider Family Medicine; PCP Family Medicine
DX: M54.16 Radiculopathy, lumbar region (principal)
CPT/HCPCS: 96372; 99283; 99284; J2270; J7512

== ENCOUNTER 2024-03-30 14:03 | Outpatient (RCR) | payer OTHER, SELFPAY | END 2024-05-10 11:57 | disposition home or self-care (01) | PROVIDERS: PCP Family Medicine; Visit Provider Physician Assistant | DX: M19.012 Primary osteoarthritis, left shoulder (principal); M75.42 Impingement syndrome of left shoulder; M75.52 Bursitis of left shoulder; M25.512 Pain in left shoulder; G89.29 Other chronic pain; M25.311 Other instability, right shoulder; Z51.89 Encounter for other specified aftercare | CPT/HCPCS: 97110; 97161 ==

== ENCOUNTER 2024-07-08 08:15 | Outpatient (CLI) | payer OTHER, SELFPAY | END 2024-07-08 08:16 | disposition home or self-care (01) | PROVIDERS: PCP Family Medicine; Visit Provider Family Medicine | DX: I10 Essential (primary) hypertension (principal); E78.2 Mixed hyperlipidemia; E29.1 Testicular hypofunction | CPT/HCPCS: 80048; 80061; 84403; 84460; 85025 ==

== ENCOUNTER 2025-01-17 14:39 | Outpatient (CLI) | payer OTHER, SELFPAY | END 2025-01-17 14:40 | disposition home or self-care (01) | LOC: FBOREF 15:50 | PROVIDERS: PCP Family Medicine; Visit Provider Family Medicine | DX: E29.1 Testicular hypofunction (principal) | CPT/HCPCS: 84403 ==